=== PATIENT | male | born 1970 | race Caucasian/White ===

== ENCOUNTER 2017-03-18 08:30 | Emergency (ER) | payer BC ==
[~2017-03-18] VITALS: Ht 172.7 cm; Wt 87.3 kg
[~2017-03-18 08:30] MED LIST: ASPI-557 PO; ATOR40TA64 PO; CLOP75TA PO; LISI10TA7 PO; METO10TA3 PO; METO25TA6 PO; MULT-933 PO; NITR0.4T SL
[2017-03-18 08:34] VITALS: Ht 172.7 cm; Wt 87.3 kg
--- OUTSIDE RECORDS SUMMARY | 2017-03-18 08:36 | XMS REPORT | Continuity of Care Document ---
Author Author [facility] Organization [facility] Address Unknown Phone Unavailable Allergies Active Description Code Type Severity Reaction Onset Reported/Identified Relationship to Patient Clinical Status Yes No Known Allergies No Known Allergies Drug Allergy Unknown N/A 12/13/2015 Yes No Known Allergies NKMA N/A N/A 04/08/2016 Medications Problems Date Dx Coded Attending Type Code Diagnosis Diagnosed By 12/13/2015 Belkis Perez MD D72.829 ELEVATED WHITE BLOOD CELL COUNT, UNSPECIFIED 12/13/2015 Belkis Perez MD E78.5 HYPERLIPIDEMIA, UNSPECIFIED 12/13/2015 Belkis Perez MD F10.20 ALCOHOL DEPENDENCE, UNCOMPLICATED 12/13/2015 Belkis Perez MD F17.200 NICOTINE DEPENDENCE, UNSPECIFIED, UNCOMPLICATED 12/13/2015 Belkis Perez MD I21.11 STEMI INVOLVING RIGHT CORONARY ARTERY 12/13/2015 Belkis Perez MD I25.10 ATHSCL HEART DISEASE OF [place] CORONARY ARTERY W/O 12/13/2015 Belkis Perez MD I49.01 VENTRICULAR FIBRILLATION 12/13/2015 Belkis Perez MD R41.3 OTHER AMNESIA 12/13/2015 Belkis Perez MD Y90.9 PRESENCE OF ALCOHOL IN BLOOD, LEVEL NOT SPECIFIED Procedures Code Description Performed By Performed On 76197PY DILATION OF 1 COR ART WITH INTRALUM DEV, PERC APPR Belkis Perez MD 12/13/2015 [id number] PENTECOSTALISM OF CARDIAC RHYTHM, SINGLE Belkis Perez MD 12/13/2015 [id number] FLUOROSCOPY OF MULT COR ART USING L OSM CONTRAST Belkis Perez MD 12/13/2015 Results Test Result Range CBC - 12/14/15 00:50 MEAN CELL HGB 30.7 pg 27.0-33.0 MEAN CELL HGB CONCENTRATION 34.8 g/dL 32.0-37.0 MEAN CELL VOLUME 88.1 fl 80.0-100.0 RED BLOOD CELL 4.63 m/cumm 4.00-6.00 RED CELL DISTRIBUTION WIDTH 12.7 % 11.0- 15.6 WHITE BLOOD CELL 18.6 k/cumm 5.0-10.0 HEMOGLOBIN 14.2 gm/dL 14.0-18.0 HEMATOCRIT 40.8 % 40.0-54.0 PLATELET COUNT 207 k/cumm 150-400 PROTHROMBIN TIME WITH INR - 12/14/15 00:50 INTERNATIONAL NORMAL RATIO 1.1 0.9-1.1 PROTHROMBIN TIME 11.9 sec 9.3-12.2 PARTIAL THROMBOPLASTIN TIME - 12/14/15 00:50 PARTIAL THROMBOPLASTIN TIME 167 sec 23- 39 TROPONIN I - 12/14/15 00:50 TROPONIN I 10.68 ng/mL < 0.07 CBC - 12/14/15 05:49 MEAN CELL HGB 30.6 pg 27.0-33.0 MEAN CELL HGB CONCENTRATION 34.7 g/dL 32.0-37.0 MEAN CELL VOLUME 88.3 fl 80.0-100.0 RED BLOOD CELL 4.44 m/cumm 4.00-6.00 RED CELL DISTRIBUTION WIDTH 12.9 % 11.0- 15.6 WHITE BLOOD CELL 15.1 k/cumm 5.0-10.0 HEMOGLOBIN 13.6 gm/dL 14.0-18.0 HEMATOCRIT 39.2 % 40.0-54.0 PLATELET COUNT 214 k/cumm 150-400 HEMOGLOBIN A1C - 12/14/15 05:49 HEMOGLOBIN A1C 5.1 % < 5.7 METABOLIC PANEL, COMPREHN - 12/14/15 05:49 POTASSIUM 4.5 mmol/L 3.5-5.3 EST GFR (MDRD) > 60 mL/min > 59 ANION GAP 9 mmol/L 5-15 EST CrCl (CG) > 60 mL/min > 59 GLUCOSE 120 mg/dL 70-99 CALCIUM 7.2 mg/dL 8.5-10.1 BLOOD UREA NITROGEN 11 mg/dL 7-20 CREATININE 0.8 mg/dL 0.7-1.3 SODIUM 141 mmol/L 135-148 CHLORIDE 111 mmol/L 98-110 AST/SGOT 195 Units/L 10-37 ALT/SGPT 85 Units/L < 66 CARBON DIOXIDE 21 mmol/L 21-32 TOTAL PROTEIN 6.2 gm/dL 6.4-8.2 ALBUMIN 3.0 gm/dL 3.4-5.0 BILI TOTAL 0.3 mg/dL 0.0-1.0 ALKALINE PHOSPHATASE TOTAL 104 IU/L 45- 117 LIPID PANEL - 12/14/15 05:49 CHOLESTEROL/HDL RATIO 4.9 < 5.0 LDL CHOLESTEROL 115 mg/dL < 100 VLDL CHOLESTEROL 16 mg/dL < 30 TRIGLYCERIDES 81 mg/dL < 150 CHOLESTEROL 165 mg/dL < 200 HDL CHOLESTEROL 34 mg/dL > 39 THYROID STIM HORMONE (TSH) - 12/14/15 05:49 THYROID STIM HORMONE (TSH) 0.48 uIU/mL 0.34-4.82 TROPONIN I - 12/14/15 05:49 TROPONIN I 36.40 ng/mL < 0.07 PARTIAL THROMBOPLASTIN TIME - 12/14/15 07:45 PARTIAL THROMBOPLASTIN TIME 48 sec 23-39 TROPONIN I - 12/14/15 19:33 TROPONIN I 27.67 ng/mL < 0.07 CBC W/DIFF - 12/15/15 04:19 EOSINOPHIL # 0.2 k/cumm 0.1-0.5 EOSINOPHIL % 2 % 2-4 GRANULOCYTE # 7.3 k/cumm 2.0-9.0 GRANULOCYTE % 65 % 50-75 LYMPHOCYTE # 2.6 k/cumm 1.0-4.0 LYMPHOCYTE % 24 % 20-30 MEAN CELL HGB 30.0 pg 27.0-33.0 MEAN CELL HGB CONCENTRATION 33.9 g/dL 32.0-37.0 MEAN CELL VOLUME 88.5 fl 80.0-100.0 MONOCYTE # 1.1 k/cumm 0.1-1.0 MONOCYTE % 10 % 4-6 RED BLOOD CELL 4.94 m/cumm 4.00-6.00 RED CELL DISTRIBUTION WIDTH 13.0 % 11.0- 15.6 WHITE BLOOD CELL 11.2 k/cumm 5.0-10.0 HEMOGLOBIN 14.8 gm/dL 14.0-18.0 HEMATOCRIT 43.7 % 40.0-54.0 PLATELET COUNT 195 k/cumm 150-400 METABOLIC PANEL, BASIC - 12/15/15 04:19 POTASSIUM 4.0 mmol/L 3.5-5.3 EST GFR (MDRD) > 60 mL/min > 59 ANION GAP 7 mmol/L 5-15 EST CrCl (CG) > 60 mL/min > 59 GLUCOSE 92 mg/dL 70-99 CALCIUM 8.3 mg/dL 8.5-10.1 BLOOD UREA NITROGEN 8 mg/dL 7-20 CREATININE 0.9 mg/dL 0.7-1.3 SODIUM 142 mmol/L 135-148 CHLORIDE 109 mmol/L 98-110 CARBON DIOXIDE 26 mmol/L 21-32 Encounters ACCT No. Visit Date/Time Discharge Status Pt. Type Provider Facility Loc./Unit Complaint [id number] 12/13/2015 22:27:00 2015 11:00:00 DIS Inpatient Ana CAT, Belkis Epps [facility] W.3TN
--- OUTSIDE RECORDS SUMMARY | 2017-03-18 08:36 | XMS REPORT | Referral Summary ---
Author Author [facility] Organization [facility] Address Unknown Phone Unavailable Care Team Providers Care Lamp Stack Developer Name Role Phone Annita Munoz Primary Care Physician [phone] Encounter Date(s): 04/08/16 - 04/08/16 [facility] [address] [place] [id number] Discharge Diagnosis: Tick bite Discharge Diagnosis: Cellulitis Discharge Disposition: 01-Home or Self Care Attending Physician: Subhash Lepe PA-C Admitting Physician: Subhash Lepe PA-C Vital Signs Most recent to 1 oldest [Reference Range]: Temperature Tympanic 36.4 degC [36.6-38.1 degC] *LOW* (04/08/16 2:28 PM) Peripheral Pulse 85 bpm Rate [60-100 bpm] (04/08/16 2:28 PM) Blood Pressure 132/68 mmHg [90-140/60-90 mmHg] (04/08/16 2:28 PM) SpO2 97 % (04/08/16 2:28 PM) Problem List Condition Effective Dates Status Health Status Informant CAD (coronary artery Active disease)(Confirmed) Allergies, Adverse Reactions, Alerts No Known Allergies Medications aspirin 0 Refill(s) Start Date: 04/08/16 Status: Ordered doxycycline hyclate 100 mg oral capsule 100 mg 1 caps, Oral, BID, X 10 days, # 20 caps, 0 Refill(s), Pharmacy: [facility], 1 caps Oral BID,x10 days Start Date: 04/08/16 Stop Date: 04/18/16 Status: Ordered Metoprolol Tartrate BID, 0 Refill(s) Start Date: 04/08/16 Status: Ordered Plavix Oral, 0 Refill(s) Start Date: 04/08/16 Status: Ordered Results No data available for this section Immunizations No data available for this section Procedures No data available for this section Social History Social History Type Response Smoking Status Current every day smoker; Type: Cigarettes; Tobacco use per day: 1 Pack Assessment and Plan Extracted from: Title: tick bite Author: Subhash Lepe PA-C Date: 04/08/16 Assessment/Plan Cellulitis Take antibiotics as directed. Diagnosis and treatment discussed. Patient advised to follow up with PCP in 2-3 days. Patient stable upon discharge, alert and orientated with no apparent Tick bite No tick remnants noted. Orders: doxycycline, 100 mg 1 caps, Oral, BID, X 10 days, # 20 caps, 0 Refill( s), Pharmacy: [facility], 1 caps Oral BID,x10 days
--- OUTSIDE RECORDS SUMMARY | 2017-03-18 08:36 | XMS REPORT | Continuity of Care Document ---
Author Author [facility] Organization [facility] Address Unknown Phone Unavailable Support Name Relationship Address Phone ANGEL FLOYD MD Caregiver [address] [place] [address] Unavailable KALYYN ARMSTRONG MD Caregiver [address] [facility] [address] [place] [address] Unavailable BROOKEFebruary Next Of Kin [address] [place] [address] Insurance Providers Guarantor Victor Hugo Morrow Address [address] [place] [address] Email DENIED/NO TO PT PORTAL Payer [facility] Policy Number [id number] Subscriber's Name Victor Hugo Morrow Relationship 18 Self Group Number [id number] Advance Directives Directive Response Recorded Date/Time Advanced Directives Type None 04/09/16 10:00am Chief Complaint and Reason for Visit Chief Complaint Chest Pain Reason for Visit [id number] Problems Active Problems Medical Problem Onset Date Status Abdominal pain Unknown Acute Acute MO Unknown Acute Cardiac arrest Unknown Acute Non-STEMI (non-ST elevated myocardial infarction) Unknown Acute Past Problems Medical Problem Onset Date Chest pain radiating to arm Unknown Medications Current Home Medications Medication Dose Units Route Directions Days Qty Instructions Start Date Aspirin (Aspir 81) 81 Mg Tablet. 81 Mg Oral Daily 01/11/16 Atorvastatin Calcium 40 Mg Tablet 40 Mg Oral Bedtime 04/09/16 Clopidogrel Bisulfate (Plavix) 75 Mg Tablet 75 Mg Oral Daily Lisinopril 10 Mg Tablet 10 Mg Oral Daily 04/09/16 Metoclopramide Hcl 10 Mg Tablet 10 Mg Oral Twice A Day as needed for Reflux 04/09/16 Metoprolol Tartrate 25 Mg Tablet 25 Mg Oral Twice Daily With Meals 04/09/16 Multivitamin (Multi-Day Vitamins) 1 Each Tablet 1 Tab Oral Daily 04/09/16 Nitroglycerin (Nitrostat) 0.4 Mg Tablet 0.4 Mg Sublingual Every 5 Minutes X 3 as needed for Chest Pain 04/09/16 Past Home Medications Medication Directions Ordered Status No Daily Meds , 12/13/15 Discontinued Social History Social History Problem Response Recorded Date/Time Onset Date Status Hx Substance Use Y METHAMPHETAMINE USE HX 04/09/2016 10:00am Not Applicable Not Applicable Hx Alcohol Use Y 3-4 BEERS/DAY 04/09/2016 10:00am Not Applicable Not Applicable Tobacco Usage smoke 12/13/2015 9:45pm Not Applicable Not Applicable Query Response Start Date Stop Date Smoking Status Current some day smoker Hospital Discharge Instructions No hospital discharge instructions. Plan of Care Discharge Date 04/09/16 11:20am Disposition 01 DISCHARGED HOME, SELF-CARE Condition at Discharge Stable Instructions/Education Provided How to Quit Smoking Prescriptions See Medication Section Referrals KAYLYN ARMSTRONG MD Address: [address] [place] [address] [place] [address] Additional Instructions/Education Keep working on your smoking. Today's episode and labs/EKG/CXR aren't really pointing to this being a heart attack or pending heart attack. Call Dr Mars's office for an appointment in the next week or two (Dr Mars is back on April 19). If you have any more episodes like this call and get in sooner. Otherwise, resume normal activities. Care Plan and Goals Physician Care Plan Problem:chest pain radiating to left arm Goal: Follow up with primary care provider Instructions: Take medications and follow care plan as discussed/written Functional Status No functional status results. Allergies, Adverse Reactions, Alerts No known allergies. Immunizations Query Response on File Recorded Date/Time Influenza Vaccine Hx NO 04/09/16 10:00am Vital Signs Acute Vital Signs Vital Response Date/Time Temperature (Fahrenheit) 98.5 deg F (96.8 - 99.1) 04/09/2016 11:20am Temperature (Calculated Celsius) 36.34534 degrees C (36.0 - 37.3) 04/09/2016 11:20am Pulse Rate (adult) 60 bpm (60 - 100) 04/09/2016 11:20am Respiratory Rate 16 breaths/min (10 - 20) 04/09/2016 11:20am O2 Sat by Pulse Oximetry 95 % (90 - 100) 04/09/2016 11:20am Blood Pressure 135/74 mm Hg 04/09/2016 11:20am Height (Feet) 5 feet 04/09/2016 10:00am Height (Inches) 6.00 inches 04/09/2016 10:00am Weight (Kilograms) 83.400 kg 04/09/2016 10:00am Body Mass Index (BMI) 29.0 04/09/2016 10:00am Results Laboratory Results Test Name Result Units Flags Reference Collection Date/Time Result Date/ Time Comments White Blood Count 6.5 T/MM3 4.5-11.0 04/09/2016 10:04/09/2016 10: 30am Red Blood Count 5.21 M/MM3 4.50-5.90 04/09/2016 10:04/09/2016 10: 30am Hemoglobin 16.2 GM/DL 13.5-17.5 04/09/2016 10:04/09/2016 10:30am Hematocrit 47.5 % 41-53 04/09/2016 10:04/09/2016 10:30am Mean Corpuscular Volume 91.2 UM3 80-100 04/09/2016 10:04/09/2016 10:30am Mean Corpuscular Hemoglobin 31.1 UUG 26-34 04/09/2016 10:2015 10:30am Mean Corpuscular Hemoglobin Concent 34.1 GM/DL 31-37 04/09/2016 10:04/09/2016 10:30am RDW Standard Deviation 43.3 FL 36.9-50.2 04/09/2016 10:04/09/2016 10:30am Platelet Count 172 T/MM3 130-400 04/09/2016 10:04/09/2016 10:30am Mean Platelet Volume 11.4 UM3 9.4-12.4 04/09/2016 10:04/09/2016 10 :30am Neutrophils (%) (Auto) 67.0 % H 33-66 04/09/2016 10:04/09/2016 10: 30am Lymphocytes (%) (Auto) 21.4 % L 23-45 04/09/2016 10:04/09/2016 10: 30am Monocytes (%) (Auto) 9.3 % H 0-9.0 04/09/2016 10:04/09/2016 10: 30am Eosinophils (%) (Auto) 1.8 % 0-4 04/09/2016 10:04/09/2016 10:30am Basophils (%) (Auto) 0.3 % 0-2 04/09/2016 10:04/09/2016 10:30am Immature Granulocyte % (Auto) 0.2 % 0.0-0.5 04/09/2016 10:2015 10:30am Absolute Neutrophils (auto) 4.4 T/MM3 1.8-7.7 04/09/2016 10:2015 10:30am Absolute Lymphocytes (auto) 1.4 T/MM3 1-4.8 04/09/2016 10:2015 10:30am Absolute Monocytes (auto) 0.6 T/MM3 0-0.8 04/09/2016 10:2015 10:30am Absolute Eosinophils (auto) 0.1 T/MM3 0-0.5 04/09/2016 10:2015 10:30am Absolute Basophils (auto) 0.0 T/MM3 0-0.2 04/09/2016 10:2015 10:30am Absolute Immature Granulocyte (auto 0.01 T/MM3 0.00-0.03 04/09/2016 10: 04/09/2016 10:30am Prothromb Time International Ratio 1.06 0.81-1.09 04/09/2016 10:04/09/2016 10:34am THERAPUTIC RANGE=2.00-3.00 FOR ANTI-THROMBOSIS THERAPUTIC RANGE=2.50-3.50 FOR IMPLANTED VALVE Icterus Index < 2 0-7 04/09/2016 10:am 04/09/2016 10:39am Chemistry Specimen Hemolysis 106 H 0-25 04/09/2016 10:04/09/2016 10:39am 71-285: Specimen Exhibited Moderate Hemolysis - can falsely elevate K (Potassium), Troponin I, CA 19-9, PTH, CSF Glucose, Urine Protein, and can falsely decrease Phenytoin. Turbidity < 20 0-20 04/09/2016 10:04/09/2016 10:39am Sodium Level 140 MEQ/L 134-144 04/09/2016 10:04/09/2016 10:39am Potassium Level 4.2 MEQ/L 3.6-5 04/09/2016 10:04/09/2016 10:39am Chloride Level 106 MEQ/L 98-107 04/09/2016 10:04/09/2016 10:39am Carbon Dioxide Level 24 MEQ/L 22-30 04/09/2016 10:04/09/2016 10: 39am Anion Gap 10 MEQ/L 5-04/09/2016 10:04/09/2016 10:39am Blood Urea Nitrogen 9.0 MG/DL 9-04/09/2016 10:04/09/2016 10: 39am Creatinine 0.7 MG/DL L 0.8-1.5 04/09/2016 10:04/09/2016 10:39am BUN/Creatinine Ratio 13 RATIO 05-0904/09/2016 10:04/09/2016 10: 39am Glomerular Filtration Rate Calc 123 04/09/2016 10:04/09/2016 10:39am Glucose Level 127 MG/DL H 75-110 04/09/2016 10:04/09/2016 10:39am Calculated Osmolality 270 MOSM/KG 261-280 04/09/2016 10:2015 10:39am Calcium Level 9.5 MG/DL 8.4-10.2 04/09/2016 10:04/09/2016 10:39am Troponin I 0.015 ng/ml 0-0.12 04/09/2016 10:04/09/2016 10:51am Troponin values with a difference of 55% increase from orginal troponin value represent a true biological DELTA value. (%increase Calc=Orginal Troponin value, divided by subsequent Troponin value, multiplied by 100) TY-Svg-M-Type Natriuretic Peptide 67 PG/ML 0-175 04/09/2016 10: 10:51am Rule in cut points: <50 years old=450; 50-75 years old=900; >75 years old=1800; When utilizing ProBNP rule-in cut points, adjustment for impaired renal function is typically not required. Name: BROOKEVICTOR HUGO Viola Unit #: [id number] : 1970 Sex: M Admit Date: Loc / Svc: ED Discharge Date: DIAGNOSTIC IMAGING REPORT Report #: [id number] [facility] [place] Indication: ITS.REASON: chest pain with shortness of breath starting this morning, pain radiating down the left arm PROCEDURE: CHEST 1 VIEW: Encounter: Initial Comparison: January 11, 2016 FINDINGS: The lungs are clear. There is no abnormal airspace opacity, pleural effusion or pneumothorax identified. The heart size, pulmonary vasculature and mediastinum are within normal limits. No significant skeletal abnormality is seen. IMPRESSION: No acute cardiopulmonary abnormality. . Procedures Procedure Status Date Provider(s) CHEST X-RAY 1 VIEW FRONTAL Completed 04/09/16 METABOLIC PANEL TOTAL CA Completed 04/09/16 ASSAY OF NATRIURETIC PEPTIDE Completed 04/09/16 ASSAY OF TROPONIN QUANT Completed 04/09/16 COMPLETE CBC W/AUTO DIFF WBC Completed 04/09/16 PROTHROMBIN TIME Completed 04/09/16 ELECTROCARDIOGRAM TRACING Completed 04/09/16 EMERGENCY DEPT VISIT Completed 04/09/16 Encounters Encounter Location Arrival/Admit Date Discharge/Depart Date Attending Provider Departed Emergency Room [facility] 04/09/16 9:58am 04/09/16 11: 20am ANGEL FLOYD MD Discharged Recurring [facility] 01/19/16 2:00pm 04/20/16 11:59pm LEANDER JASON MD Recent Diagnosis
--- OUTSIDE RECORDS SUMMARY | 2017-03-18 08:36 | XMS REPORT | Continuity of Care Document ---
Author Author [facility] Organization [facility] Address Unknown Phone Unavailable Support Name Relationship Address Phone ANGEL FLOYD MD Caregiver [address] [place] [address] Unavailable KAYLYN ARMSTRONG MD Caregiver [address] [place] [address] Unavailable BROOKEFebruary Next Of Kin [address] [place] [address] Insurance Providers Guarantor Victor Hugo Morrow Address [address] [place] [address] Email DENIED/NO TO PT PORTAL Payer [facility] Policy Number [id number] Subscriber's Name Victor Hugo Morrow Relationship 18 Self Group Number [id number] Advance Directives Directive Response Recorded Date/Time Advanced Directives Type None 04/09/16 10:00am Chief Complaint and Reason for Visit Chief Complaint Chest Pain Reason for Visit [id number] Problems Active Problems Medical Problem Onset Date Status Abdominal pain Unknown Acute Acute [place] Unknown Acute Cardiac arrest Unknown Acute Non-STEMI [...] Medication Section Referrals KAYLYN ARMSTRONG MD Address: [address] [place] [address] [place] [address] Additional Instructions/Education Keep working on [...] - 99.1) 04/09/2016 11:20am Temperature (Calculated Celsius) 36.08280 degrees C (36.0 - 37.3) 04/09/2016 11:20am [...] Reference Collection Date/Time Result Date/ Time Comments Total Bilirubin 0.20 MG/DL 0.20-1.30 01/11/2016 10:00pm 01/11/2016 10: 18pm Alkaline Phosphatase 112 U/L 38-126 01/11/2016 10:00pm 01/11/2016 10: 18pm Total Protein 7.2 G/DL 6.3-8.2 01/11/2016 10:00pm 01/11/2016 10:18pm Albumin 4.1 G/DL 3.5-5.0 01/11/2016 10:00pm 01/11/2016 10:18pm Globulin 3.1 G/DL 2.4-3.6 01/11/2016 10:00pm 01/11/2016 10:18pm Albumin/Globulin Ratio 1.3 RATIO 1.1-2.2 01/11/2016 10:00pm 01/11/2016 10:18pm Aspartate Amino Transf (AST/SGOT) 37 U/L 17-59 01/11/2016 10:00pm 01/11 10:18pm Alanine Aminotransferase (ALT/SGPT) 86 U/L H 21-72 01/11/2016 10:00pm 10:18pm Lipase 81 U/L 23-300 01/11/2016 10:00pm 01/11/2016 10:36pm Alcohol, Quantitative <10 MG/DL <10 01/11/2016 10:00pm 01/11/2016 10: 18pm Urine Collection Type [place]-MIDSTREAM 01/11/2016 11:07pm 01/11 11:16pm Urine Color YELLOW YELLOW 01/11/2016 11:07pm 01/11/2016 11:16pm Urine Turbidity CLEAR CLEAR 01/11/2016 11:07pm 01/11/2016 11:16pm Urine Specific [place] 1.010 L 1.015-1.025 01/11/2016 11:07pm 2015 11:16pm Urine pH 5.5 5.0-8.0 01/11/2016 11:07pm 01/11/2016 11:16pm Urine Leukocyte Esterase NEGATIVE NEGATIVE 01/11/2016 11:07pm 2015 11:16pm Urine Nitrite NEGATIVE NEGATIVE 01/11/2016 11:07pm 01/11/2016 11: 16pm Urine Protein NEGATIVE NEGATIVE 01/11/2016 11:07pm 01/11/2016 11: 16pm Urine Glucose (UA) NEGATIVE NEGATIVE 01/11/2016 11:07pm 01/11/2016 11 :16pm Urine Ketones NEGATIVE NEGATIVE 01/11/2016 11:07pm 01/11/2016 11: 16pm Urine Urobilinogen 0.2 EU/DL NORMAL 01/11/2016 11:07pm 01/11/2016 11: 16pm Urine Bilirubin NEGATIVE NEGATIVE 01/11/2016 11:07pm 01/11/2016 11: 16pm Urine Blood NEGATIVE NEGATIVE 01/11/2016 11:07pm 01/11/2016 11:16pm Urinalysis Comment MICROSCOPIC NOT IND. 01/11/2016 11:07pm 2015 11:16pm White Blood Count 6.5 T/MM3 4.5-11.0 04/09/2016 10:2504/09/2016 10: 30am Red Blood Count 5.21 M/MM3 4.50-5.90 04/09/2016 10:04/09/2016 10: 30am Hemoglobin 16.2 GM/DL 13.5-17.5 04/09/2016 10:04/09/2016 10:30am Hematocrit 47.5 % 41-53 04/09/2016 10:04/09/2016 10:30am Mean Corpuscular Volume 91.2 UM3 80-100 04/09/2016 10:2504/09/2016 10:30am Mean Corpuscular Hemoglobin 31.1 UUG 26-34 04/09/2016 10:252015 10:30am Mean Corpuscular Hemoglobin Concent 34.1 GM/DL 31-37 04/09/2016 10:25am 04/09/2016 10:30am RDW Standard Deviation 43.3 FL 36.9-50.2 04/09/2016 10:2504/09/2016 10:30am Platelet Count 172 T/MM3 130-400 04/09/2016 [...] VALVE Icterus Index < 2 0-7 04/09/2016 10:04/09/2016 10:39am Chemistry Specimen Hemolysis 106 H 0-04/09/2016 10:04/09/2016 10:39am [id number]: Specimen Exhibited Moderate Hemolysis - can falsely elevate K (Potassium), Troponin I, CA 19-9, PTH, CSF Glucose, Urine Protein, and can falsely decrease Phenytoin. Turbidity < 20 0-20 04/09/2016 10:04/09/2016 10:39am Sodium Level 140 MEQ/L 134-144 04/09/2016 10:04/09/2016 10:39am Potassium Level 4.2 MEQ/L 3.6-5 04/09/2016 10:04/09/2016 10:39am Chloride Level 106 MEQ/L 98-107 04/09/2016 10:04/09/2016 10:39am Carbon Dioxide Level 24 MEQ/L 22-04/09/2016 10:04/09/2016 10: 39am Anion Gap 10 MEQ/L 5-15 04/09/2016 10:04/09/2016 10:39am Blood Urea Nitrogen 9.0 MG/DL 9-04/09/2016 10:04/09/2016 10: 39am Creatinine 0.7 MG/DL L 0.8-1.5 04/09/2016 10:04/09/2016 10:39am BUN/Creatinine Ratio 13 RATIO 6-04/09/2016 10:04/09/2016 10: 39am Glomerular Filtration Rate Calc 123 04/09/2016 10:04/09/2016 10:39am Glucose Level 127 MG/DL H 75-110 04/09/2016 10:04/09/2016 10:39am Calculated Osmolality 270 MOSM/KG 261-280 04/09/2016 10:2015 10:39am Calcium Level 9.5 MG/DL 8.4-10.2 04/09/2016 10:04/09/2016 10:39am Troponin I 0.015 ng/ml 0-0.12 04/09/2016 10:25am 04/09/2016 10:51am Troponin values with a difference of 55% increase from orginal troponin value represent a true biological DELTA value. (%increase Calc=Orginal Troponin value, divided by subsequent Troponin value, multiplied by 100) VL-Lwi-J-Type Natriuretic Peptide 67 PG/ML 0-175 04/09/2016 10:25am 10:51am Rule in cut points: <50 years old=450; 50-75 years old=900; >75 years old=1800; When utilizing ProBNP rule-in cut points, adjustment for impaired renal function is typically not required. Name: VICTOR HUGO MORROW Unit #: [id number] : 1970 Sex: M Admit Date: Loc / Svc: ED Discharge Date: DIAGNOSTIC IMAGING REPORT Report #: [id number] [facility] [place] [facility] Indication: ITS.REASON: chest pain with shortness of [...] Procedures Procedure Status Date Provider(s) CHEST X-RAY 2VW FRONTAL&LATL Completed 01/11/16 CT ABD & PELV W/CONTRAST Completed 01/11/16 COMPREHEN METABOLIC PANEL Completed 01/11/16 DRUG SCREEN QUANTALCOHOLS Completed 01/11/16 URINALYSIS AUTO W/O SCOPE Completed 01/11/16 ASSAY OF LIPASE Completed 01/11/16 ASSAY OF TROPONIN QUANT Completed 01/11/16 COMPLETE CBC W/AUTO DIFF WBC Completed 01/11/16 ELECTROCARDIOGRAM TRACING Completed 01/11/16 HYDRATE IV INFUSION ADD-ON Completed 01/11/16 THER/PROPH/DIAG INJ IV PUSH Completed 01/11/16 TX/PRO/DX INJ NEW DRUG ADDON Completed 01/11/16 EMERGENCY DEPT VISIT Completed 01/11/16317283"INJECTION, HYDROMORPHONE, UP TO 4 MG" Completed 01/11/16"INJECTION, KETOROLAC TROMETHAMINE, PER 15 MG" Completed 01/11/16"INFUSION, NORMAL SALINE SOLUTION , 1000 CC" Completed 01/11/16"INFUSION, NORMAL SALINE SOLUTION , 250 CC" Completed 01/11/16"LOW OSMOLAR CONTRAST MATERIAL, 300-399 MG/ML IODINE C Completed Encounters Encounter Location Arrival/Admit Date Discharge/Depart Date Attending Provider Departed Emergency Room [facility] 04/09/16 9:58am 04/09/16 11: 20am ANGEL FLOYD MD Registered Recurring [facility] 01/19/16 2:00pm LEANDER JASON MD Departed Emergency Room [facility] 01/11/16 9:25pm 01/11/16 11: 41pm KAUSHIK SILVA MD Recent Diagnosis
[2017-03-18] MEDS ORDERED: NORMAL SALINE 1,000 ML IV ONE (08:44)
[2017-03-18] MEDS ORDERED: ASPIRIN 81 MG CHEWABLE TABLET PO ONE (08:45)
[2017-03-18] MEDS ORDERED: NITROGLYCERIN 0.4 MG SUBLINGUAL TABLET SL PRN (08:45)
--- OUTSIDE RECORDS SUMMARY | 2017-03-18 08:57 | XMS REPORT | Continuity of Care Document ---
Author Author [facility] Organization [facility] Address Unknown Phone Unavailable Allergies Active Description [...] Perez MD I25.10 ATHSCL HEART DISEASE OF [place] CORONARY ARTERY W/O 12/13/2015 Belkis Perez MD I49.01 VENTRICULAR FIBRILLATION 12/13/2015 Belkis Perez MD R41.3 OTHER AMNESIA 12/13/2015 Belkis Perez MD Y90.9 PRESENCE OF ALCOHOL IN BLOOD, LEVEL NOT SPECIFIED Procedures Code Description Performed By [place]formed [place] [id number] DILATION OF 1 COR ART WITH INTRALUM DEV, PERC APPR Belkis Perez MD 12/13/2015 [id number] TAOISM OF CARDIAC RHYTHM, SINGLE Belkis Perez MD 12/13/2015 [id number] FLUOROSCOPY OF MULT COR ART USING L [...] Status Pt. Type Provider Facility Loc./Unit Complaint [id number] 12/13/2015 22:27:00 2015 11:00:00 DIS Inpatient Ana CAT, Belkis Epps [facility] W.3TN
--- NOTE | 2017-03-18 09:05 | NUR ---
TO [facility] PER CART
--- NOTE | 2017-03-18 09:07 | NUR ---
RETURNED FROM [facility]
[2017-03-18 09:09] LABS: BASOPHILS % (AUTO) 0.4 % (0-2); EOSINOPHILS # (AUTO) 0.2 T/MM3 (0-0.5); EOSINOPHILS % (AUTO) 2.1 % (0-4); HCT - HEMATOCRIT 47.7 % (41-53); HGB - HEMOGLOBIN 16.3 GM/DL (13.5-17.5); IMMATURE GRANULOCYTE # (AUTO) 0.02 T/MM3 (0.00-0.03); IMMATURE GRANULOCYTE % (AUTO) 0.2 % (0.0-0.5); LYMPHOCYTES # (AUTO) 2.4 T/MM3 (1-4.8); LYMPHOCYTES % (AUTO) 29.8 % (23-45); MEAN CORPUSCULAR HGB 30.6 UUG (26-34); MEAN CORPUSCULAR HGB CONC(MCHC 34.2 GM/DL (31-37); MEAN CORPUSCULAR VOLUME 89.7 UM3 (80-100); MEAN PLATELET VOLUME 10.9 UM3 (9.4-12.4); MONOCYTES # (AUTO) 0.7 T/MM3 (0-0.8); MONOCYTES % (AUTO) 8.2 % (0-9.0); NEUTROPHILS #(AUTO)-ABSOLUTE 4.8 T/MM3 (1.8-7.7); NEUTROPHILS % (AUTO) 59.3 % (33-66); RED BLOOD COUNT 5.32 M/MM3 (4.50-5.90); WBC - WHITE BLOOD COUNT 8.1 T/MM3 (4.5-11.0)
[2017-03-18 09:12] LABS: ALBUMIN 3.8 G/DL (3.5-5.0); ALBUMIN/GLOBULIN RATIO 1.3 RATIO (1.1-2.2); ALKALINE PHOSPHATASE 103 U/L (38-126); ALT (SGPT) 41 U/L (21-72); ANION GAP 9 MEQ/L (5-15); AST (SGOT) 26 U/L (17-59); BUN/CREATININE RATIO 16 RATIO (6-26); CHLORIDE 108 MEQ/L (98-107); CO2 - CARBON DIOXIDE 26 MEQ/L (22-30); CREATININE 0.9 MG/DL (0.8-1.5); GLOMERULAR FILTRATION RATE 92; GLUCOSE 108 MG/DL (75-110); INR 1.06 (0.76-1.04); POTASSIUM 3.9 MEQ/L (3.6-5); PROTHROMBIN TIME 11.5 SEC (9.31-12.49); SODIUM 143 MEQ/L (134-144); TOTAL PROTEIN 6.7 G/DL (6.3-8.2)
[2017-03-18 09:24] LABS: PROBNP 44 PG/ML (0-175)
--- NOTE | 2017-03-18 09:26 | DI ---
INDICATION: ITS.REASON: chest pain chest pressure and lightheadedness PROCEDURE: CHEST 2-VIEWS UPRIGHT (PA \T\ LAT) Encounter: Initial COMPARISON: April 09, 2016 FINDINGS: The lungs are clear without evidence of focal abnormal airspace opacity. There is no pleural effusion or pneumothorax. The heart size, mediastinal contours and pulmonary vascularity are within normal limits. There is no significant skeletal abnormality. IMPRESSION: No acute cardiopulmonary disease. .
--- NOTE | 2017-03-18 09:59 | NUR ---
STATUS PLAYING ON HIS PHONE. NO COMPLAINTS. VS STABLE. MONITOR SR
--- NOTE | 2017-03-18 11:30 | NUR ---
ASSESSMENT PT SITTING UP IN CHAIR AFTER VOIDING. PT WANTS TO GO BACK TO WORK. NO PAIN. VS STABLE. MONITOR CONTINUES SR
--- NOTE | 2017-03-18 13:34 | ERPDOC ---
Departure Disposition Decision Date: March 18, 2017 Disposition Decision Time: 14:21 Disposition: 01 DISCHARGED HOME, SELF-CARE Impression Impression Impression: Primary Impression: Angina effort Severity: Moderate Condition: Improved Seen By: Physician only Referrals: KAYLYN ARMSTRONG MD (Family) Patient Instructions: Chest Pain (ED) Problems/Meds/Labs Reviewed?: Yes Medications reviewed and manag: Yes Additional Instructions: Call Dr. Mars's office to set up follow-up appointment and angiogram. This is important because you're episode of chest tightness/chest pain today may be an indicator of another heart attack to come shortly. Follow up care ordered?: Yes Mental Status: Alert, Oriented HPI - Chest Pain General Chief Complaint: Chest Pain Stated Complaint: CP, DIZZY Time Seen by Provider: 08:43 HPI - Chest Pain Initial Comments 46-year-old gentleman with chest pain onset 30 minutes prior to arrival in the ED. Patient has history of WI with multiple stent placement approximately one half years ago. He has been able to go back to work without any chest pain, states he occasionally gets tightness in his chest but is rare. Today the tightness returned and was uncomfortable. It made him nervous and when he mentioned it to a coworker, they insisted he come to the ER to be evaluated. He would prefer to be allowed to leave as soon as possible, is concerned about missing hours at work. He does still smoke. He is taking cholesterol medication as well as Plavix. He had mild diaphoresis with the onset of the tightness today , no nausea vomiting, no extension of pain or tightness into neck arm or back. Patient describes that the pressure/tightness has resolved by the time he arrived to the hospital today. Aspirin Treatment Today: 81 mg x 4 Allergies: Coded Allergies: No Known Allergies (Unverified , 03/18/17) Past History Past Medical History Cardiac: CAD, WI Date Last Echocardiogram: April 06, 2016 Ejection Fraction (%): 65 Surgical History Cardiac: cardiac cath, cardiac stent Family History Family PMH: FOUND: [place] Social History Smoking Status: Current every day smoker # of Packs/Tins per Day: 0.5 Substance Use Type: does not use Alcohol Intake: none Sexuality: female partner Record Review Pertinent history updated: Yes Review of Systems Cardiovascular Cardiac: see HPI Rhythm/Rate: see HPI All other Systems All Other Systems: Reviewed and Negative Physical Exam General General Nourishment: well nourished, well developed, appears stated age, no acute distress Vitals and Pain First Documented Vital Signs Date Time Temp Pulse Resp B/P Pulse Ox O2 Delivery O2 Flow Rate FiO2 03/18/17 08:32 98.3 75 19 128/73 96 Room Air Weight: Kilograms: 87.300 Height (feet): 5 Height (inches): 8.00 Triage Pain Scale: Normal Exams: Head: Normocephalic w/o trauma Neck: Full range of motion, without adenopathy, JVD, bruits or thyromegaly Chest/Resp: Clear all [place], with good airflow, and symmetry bilaterally CV: Regular rate and rhythm, without murmur or gallop, Pulses 2+ all extremities, capillary refill, <2 seconds all ext., no pedal edema noted Abdomen: Bowel sounds positive, soft, non-tender, non-distended, no hepatosplenomegaly, masses or bruits noted Neurologic: Patient is alert, and oriented, cranial nerves, motor/sensory/ cerebellar, exams w/o gross deficits, to observation Psychiatric: Patient exhibits, appropriate attention, emotion and affect Differential Diagnoses Considering: Acute WI, Anxiety/Panic, Angina, Pericarditis, Pleurisy, Pneumothorax, Pneumonia, Pulmonary Edema, Pulmonary Embolus, Muscle Spasm Progress Results/Orders Orders Procedure Category Date Status Time Cbc W/Auto LAB 03/18/17 Complete Diff-Reflex Manual 08:44 Cmp - Comprehensive LAB 03/18/17 Complete Metabolic 08:44 Probnp LAB 03/18/17 Complete 08:44 Troponin I W LAB 03/18/17 Complete Hemolysis Index 08:44 INR LAB 03/18/17 Complete 08:44 D-Dimer LAB 03/18/17 Complete 08:44 EKG EKG 03/18/17 Taken 08:44 Chest, Pa & Lateral RAD 03/18/17 Resulted 08:44 Iv Lock (Ed Only) EDM 03/18/17 Transmitted 08:44 Normal Saline (Normal PHA 03/18/17 Complete Saline Iv) 08:44 Aspirin (Asa) PHA 03/18/17 Complete 08:45 Nitroglycerin PHA 03/18/17 In Process (Nitrostat) 08:45 Troponin I W LAB 03/18/17 Complete Hemolysis Index EKG EKG 03/18/17 Logged Lab Results Laboratory Tests Test 03/18/17 08:51 03/18/17 13:40 White Blood Count 8.1T/MM3 Red Blood Count 5.32M/MM3 Hemoglobin 16.3GM/DL Hematocrit 47.7% Mean Corpuscular Volume 89.7UM3 Mean Corpuscular Hemoglobin 30.6UUG Mean Corpuscular Hemoglobin Concent 34.2GM/DL RDW Standard Deviation 42.1FL Platelet Count 196T/MM3 Mean Platelet Volume 10.9UM3 Immature Granulocyte % (Auto) 0.2% Neutrophils (%) (Auto) 59.3% Lymphocytes (%) (Auto) 29.8% Monocytes (%) (Auto) 8.2% Eosinophils (%) (Auto) 2.1% Basophils (%) (Auto) 0.4% Absolute Immature Granulocyte (auto 0.02T/MM3 Absolute Neutrophils (auto) 4.8T/MM3 Absolute Lymphocytes (auto) 2.4T/MM3 Absolute Monocytes (auto) 0.7T/MM3 Absolute Eosinophils (auto) 0.2T/MM3 Absolute Basophils (auto) 0.0T/MM3 Prothromb Time International Ratio 1.06 D-Dimer < 150NG/ML Turbidity < 20 Sodium Level 143MEQ/L Potassium Level 3.9MEQ/L Chloride Level 108MEQ/L Carbon Dioxide Level 26MEQ/L Anion Gap 9MEQ/L Blood Urea Nitrogen 14.0MG/DL Creatinine 0.9MG/DL Glomerular Filtration Rate Calc 92 BUN/Creatinine Ratio 16RATIO Glucose Level 108MG/DL Calculated Osmolality 277MOSM/KG Calcium Level 9.0MG/DL Total Bilirubin 0.60MG/DL Icterus Index < 2 Aspartate Amino Transf (AST/SGOT) 26U/L Alanine Aminotransferase (ALT/SGPT) 41U/L Alkaline Phosphatase 103U/L Troponin I < 0.012ng/ml < 0.012ng/ml QP-Uom-F-Type Natriuretic Peptide 44PG/ML Total Protein 6.7G/DL Albumin 3.8G/DL Globulin 2.9G/DL Albumin/Globulin Ratio 1.3RATIO Chemistry Specimen Hemolysis < 15 < 15 Medications Current ED Medications Sodium Chloride (Normal Saline IV) 1,000 ml @ 1,000 mls/hr Q1H ONCE IV Last administered on 03/18/17t 08:57; Start 03/18/17 at 08:44; Stop 03/18/17 at 09:43; Status DC Aspirin (ASA) 324 mg O ONCE PO Last administered on 03/18/17t 08:57; Start 03/18 at 08:45; Stop 03/18/17 at 08:46; Status DC Nitroglycerin (Nitrostat) 0.4 mg Q5MIN PRN SL CHEST PAIN; Start 03/18/17 at 08: 45 Progress Progress Initial troponin and EKG are negative. Labs appropriate. Patient did agree to stay for a 4 hour redraw on his troponin. 4 hour redraw was also negative. I certainly am still concerned that this is angina and related to cardiac arterial flow. Strongly recommended he follow up with Dr. Mars this next week and schedule a stress test or angiogram. He is to return to the ED immediately if chest pain recurs. Is not thrilled about this, we did discuss the reasons behind it and that while this time it may have been angina without any damage, the next time may have damaged [address]ELY [address] MD March 18, 2017 13:34
[2017-03-18 14:00] VITALS: TEMP 98.3
--- NOTE | 2017-03-18 14:05 | NUR ---
FAMILY AT BEDSIDE
--- NOTE | 2017-03-18 14:23 | NUR ---
IVL IVL DC'D WITH CATH INTACT
[2017-03-18 14:25] VITALS: BP 124/77; PULSE 61; RESP 16; O2SAT 96
--- NOTE | 2017-03-18 14:25 | NUR ---
DISMISSAL DISMISSAL INSTRUCTIONS TO PT WITHOUT FURTHER QUESTIONS. PT LEFT DEPARTMENT DISCOMFORT FREE WITH
== END 2017-03-18 14:25 | disposition home or self-care (01) ==
LOC: ED 08:30
DX: I20.8 Other forms of angina pectoris (principal); F17.200 Nicotine dependence, unspecified, uncomplicated; I25.2 Old myocardial infarction
CPT/HCPCS: 36415; 71020; 80053; 83880; 84484; 85025; 85379; 85610; 93005; 96360; 99284; J7030

== ENCOUNTER 2017-03-30 10:48 | Outpatient (CLI) | payer BC ==
[2017-03-30] VITALS (14 sets, daily range): BP systolic 105–131; BP diastolic 57–87; PULSE 58–75; RESP 13–27; TEMP 97.5–98; O2SAT 96–99; Ht 170.2 cm; Wt 85.6 kg
[~2017-03-30] VITALS: Ht 170.2 cm; Wt 85.6 kg
[~2017-03-30 10:48] MED LIST changes: -METO10TA3 PO
--- NOTE | 2017-03-30 10:53 | NUR ---
ADMISSION PATIENT ADMITTED TO ROOM 124 AT THIS TIME. PT AMBULATORY AND APPEARS TO BE IN NO ACUTE DISTRESS. FAMILY AT BEDSIDE. PT GIVEN INSTRUCTIONS ON GETTING DRESSED IN GOWN/SOCKS. WILL CONTINUE TO MONITOR.
[2017-03-30 11:18] LABS: BASOPHILS # (AUTO) 0.1 T/MM3 (0-0.2); BASOPHILS % (AUTO) 0.6 % (0-2); EOSINOPHILS # (AUTO) 0.2 T/MM3 (0-0.5); EOSINOPHILS % (AUTO) 2.2 % (0-4); HCT - HEMATOCRIT 50.7 % (41-53); HGB - HEMOGLOBIN 17.3 GM/DL (13.5-17.5); IMMATURE GRANULOCYTE # (AUTO) 0.02 T/MM3 (0.00-0.03); IMMATURE GRANULOCYTE % (AUTO) 0.3 % (0.0-0.5); LYMPHOCYTES # (AUTO) 2.3 T/MM3 (1-4.8); LYMPHOCYTES % (AUTO) 28.8 % (23-45); MEAN CORPUSCULAR HGB 30.9 UUG (26-34); MEAN CORPUSCULAR HGB CONC(MCHC 34.1 GM/DL (31-37); MEAN CORPUSCULAR VOLUME 90.5 UM3 (80-100); MEAN PLATELET VOLUME 10.9 UM3 (9.4-12.4); MONOCYTES # (AUTO) 0.7 T/MM3 (0-0.8); MONOCYTES % (AUTO) 8.7 % (0-9.0); NEUTROPHILS #(AUTO)-ABSOLUTE 4.7 T/MM3 (1.8-7.7); NEUTROPHILS % (AUTO) 59.4 % (33-66); WBC - WHITE BLOOD COUNT 7.9 T/MM3 (4.5-11.0)
[2017-03-30 11:24] LABS: ANION GAP 12 MEQ/L (5-15); BUN/CREATININE RATIO 13 RATIO (6-26); CALCIUM 9.5 MG/DL (8.4-10.2); CHLORIDE 109 MEQ/L (98-107); CO2 - CARBON DIOXIDE 24 MEQ/L (22-30); CREATININE 0.9 MG/DL (0.8-1.5); GLOMERULAR FILTRATION RATE 92; GLUCOSE 96 MG/DL (75-110); POTASSIUM 4.3 MEQ/L (3.6-5); SODIUM 145 MEQ/L (134-144)
[2017-03-30] MEDS: NORMAL SALINE 1,000 ML IV SCH ×2 (11:35→23:10)
--- NOTE | 2017-03-30 12:20 | NUR ---
TO [facility] PT TRANSPORTED TO [facility] AT THIS TIME VIA CART. SIGNIFICANT OTHER SLY PRESENT UPON TRANSFER. VITAL SIGNS STABLE UPON TRANSFER. INFORMED CONSENT OBTAINED AND PT VOIDED PRIOR. WILL CONTINUE TO MONITOR.
[2017-03-30] MEDS ORDERED: FENTANYL 100mcg/2ml INJECTION ONE (12:24)
[2017-03-30] MEDS ORDERED: NITROGLYCERIN 50mg/10ml INJECTION IV ONE (12:25)
[2017-03-30] MEDS ORDERED: MIDAZOLAM 2mg/2ml INJECTION ONE (12:25)
[2017-03-30] MEDS ORDERED: VERAPAMIL 5mg/2ml INJECTION IV ONE (12:25)
[2017-03-30] MEDS ORDERED: LIDOCAINE 1% (10mg/ml) 30ml SDV ONE (12:26)
[2017-03-30] MEDS ORDERED: HEPARIN 1,000units in NS 500ml BAG IV ONE (12:26)
[2017-03-30] MEDS ORDERED: CLOPIDOGREL 75 MG TABLET ONE (12:53)
[2017-03-30] MEDS ORDERED: MILK OF MAGNESIA 30 ML SUSP PO PRN (13:00)
[2017-03-30] MEDS ORDERED: BISACODYL 10 MG SUPPOSITORY RECTALLY PRN (13:00)
[2017-03-30] MEDS ORDERED: BISACODYL 5 MG E.C. TABLET PO PRN (13:00)
[2017-03-30] MEDS ORDERED: PROMETHAZINE 25 MG INJECTION IV PRN (13:00)
[2017-03-30] MEDS ORDERED: MORPHINE SULFATE 4 MG SYRINGE IV PRN ×2 (13:00)
[2017-03-30] MEDS ORDERED: HYDROCODONE/APAP 5 mg/325 mg TABLET PO PRN (13:00)
[2017-03-30] MEDS ORDERED: ONDANSETRON 4mg/2ml INJECTION IV PRN (13:00)
[2017-03-30] MEDS ORDERED: METOCLOPRAMIDE 10mg/2ml INJECTION IV PRN (13:00)
[2017-03-30] MEDS ORDERED: NITROGLYCERIN 0.4 MG SUBLINGUAL TABLET SL PRN (13:00)
[2017-03-30] MEDS ORDERED: ACETAMINOPHEN 325 MG TABLET PO PRN (13:00)
[2017-03-30] MEDS ORDERED: ATROPINE 1 MG/ML VIAL IV PRN (13:00)
[2017-03-30] MEDS ORDERED: LORAZEPAM 2 MG/ML INJECTION IV PRN (13:00)
[2017-03-30] MEDS ORDERED: MAG-AL + SIM LIQUID 30 ML UDC PO PRN (13:00)
[2017-03-30] MEDS ORDERED: LORAZEPAM 0.5 MG TABLET PO PRN (13:00)
--- NOTE | 2017-03-30 13:38 | NUR ---
ADMIT PT ADMITTED TO BED 1 CCU VIA BED FROM BEHAVIORAL SCIENCE CHAIR. PT IS A&OX3, UP WITH ONE ASSIST, MODERATE FALL. PT IS ABLE TO TAKE IN CLEAR LIQUIDS AND REPORTS PAIN IN FORM OF HEADACHE. RADIAL BAND TO RIGHT WRIST IN PLACE, NO HEMATOMA OR BLEEDING AT THIS TIME. AND PT ORIENTED TO BED AND ROOM. ALARMS IN USE AND CALL LIGHT WITH IN REACH.
--- NOTE | 2017-03-30 15:08 | NUR ---
CM CM IN TO VISIT PT. CM EXPLAINED ROLE AND PROVIDED CONTACT INFORMATION. PT DENIES HOME NEEDS AND IS AWARE TO CALL CM SHOULD NEEDS ARISE.
--- NOTE | 2017-03-30 16:39 | CVPROF ---
DATE OF PROCEDURE March 30, 2017 INDICATION The patient is a 46-year-old gentleman with history of coronary artery disease and percutaneous intervention in the past who has stopped taking his Plavix and has been having increasing angina and was referred for further evaluation and possible intervention by cardiac catheterization. INFORMED CONSENT Informed consent was obtained after explaining the procedure and the potential risks to the patient who agreed to proceed with the procedure. PROCEDURE 1. Left heart catheterization. 2. Coronary angiography. 3. Left ventriculography. 4. Primary stent of RCA using a 3.0 x 38 drug-eluting Resolute Integrity stent for in-stent restenosis. TECHNIQUE He was prepped and draped in the usual sterile techniques. Conscious sedation was performed using Versed and fentanyl. 1% lidocaine was used for local anesthesia. Using modified Seldinger technique, arterial access was obtained into the right radial artery with placement of a 6-[place]ith[place]ian arterial sheath. 3000 units of heparin, 300 mcg of nitroglycerin, and 2.5 mg of verapamil were given through the arterial sheath. LEFT VENTRICULOGRAPHY Left ventriculography in single-plane PAULSON shallow projection showed normal LV systolic function with ejection fraction of about 65% with no mitral regurgitation or gradient across the aortic valve. LVEDP was about 8. CORONARY ANGIOGRAPHY Left main was free of significant lesions and bifurcated into left anterior descending and left circumflex arteries. Left anterior descending artery and diagonals were free of significant lesions. Left circumflex artery had minor disease of up to about 20-30% stenosis in mid segment. Right coronary artery had a long segment of endovascular stent. In mid segment, there was an 80-90% in-stent restenosis. Remaining course of stents had up to about 40% diffuse in-stent restenosis. After reviewing the images we decided to proceed with intervention on RCA. Additional 4000 units of heparin was administered. I had a long discussion with the patient regarding dual antiplatelet therapy and the patient promised to stay compliant and take dual antiplatelet therapy in future. 600 mg of Plavix was given orally. A 6-[place]ian Mercury Intermediaari right guide was advanced to the ostium of the right coronary artery. A Runthrough wire was used to cross the lesion into distal RCA. A 3.0 x 38 drug-eluting Resolute Integrity stent was delivered inside the stent and was positioned across the tightest part of the lesion and deployed by inflating the balloon to 20 atmospheres. The next angiogram showed excellent results with no residual stenosis at the stented site. The remaining course of the previous stents had about 40% diffuse disease but did not appear to be hemodynamically significant for intervention. The patient tolerated the procedure well with no complications. IMPRESSION 1. Normal LV systolic function with ejection fraction of 65%. 2. Coronary artery disease as described above. 3. Successful primary stent of RCA using a 3.0 x 38 drug-eluting Resolute Integrity stent. PLAN Will keep him on dual antiplatelet therapy and continue risk modification. CHELSEY
--- NOTE | 2017-03-30 18:07 | NUR ---
SHIFT PT HAS BEEN PLEASANT AND COOPERATIVE ALL SHIFT. PT IS A&OX3, UP WITH NO ASSIST, LOW FALL. PT DENIES PAIN, N/V AND SOA AT THIS TIME. PT HAS BEEN UP TO BATHROOM TWICE THIS SHIFT. RIGHT RADIAL PULSE IS NOW STRONG AND DRESSING TO PLACE WITH NO SIGNS OF BLEEDING. IS AT BEDSIDE. POST OP VITALS WNL, SEE VITAL INTERVENTION. NO OTHER CHANGES SINCE ADMISSION.
[2017-03-30] MEDS ORDERED: ATORVASTATIN 40 MG TABLET PO SCH (22:00)
[2017-03-31] VITALS (8 sets, daily range): BP systolic 126–147; BP diastolic 73–92; PULSE 51–61; RESP 14–36; TEMP 98.3; O2SAT 95–98
--- NOTE | 2017-03-31 05:34 | NUR ---
Shift Summary Pt slept well during the night. Denies any pain or discomforts. VSS. Arm board remains to right wrist. Dressing c/d/i. Pulse strong. Up to restroom several times with minimal assist. Sinus Dominick HR down to 48. Asymptomatic.
[2017-03-31 05:39] LABS: BASOPHILS % (AUTO) 0.5 % (0-2); EOSINOPHILS # (AUTO) 0.2 T/MM3 (0-0.5); EOSINOPHILS % (AUTO) 3.7 % (0-4); HCT - HEMATOCRIT 45.6 % (41-53); HGB - HEMOGLOBIN 15.4 GM/DL (13.5-17.5); IMMATURE GRANULOCYTE # (AUTO) 0.01 T/MM3 (0.00-0.03); IMMATURE GRANULOCYTE % (AUTO) 0.2 % (0.0-0.5); LYMPHOCYTES # (AUTO) 1.8 T/MM3 (1-4.8); LYMPHOCYTES % (AUTO) 29.5 % (23-45); MEAN CORPUSCULAR HGB 30.3 UUG (26-34); MEAN CORPUSCULAR HGB CONC(MCHC 33.8 GM/DL (31-37); MEAN CORPUSCULAR VOLUME 89.8 UM3 (80-100); MEAN PLATELET VOLUME 11.1 UM3 (9.4-12.4); MONOCYTES # (AUTO) 0.6 T/MM3 (0-0.8); MONOCYTES % (AUTO) 9.4 % (0-9.0); NEUTROPHILS #(AUTO)-ABSOLUTE 3.4 T/MM3 (1.8-7.7); NEUTROPHILS % (AUTO) 56.7 % (33-66); RED BLOOD COUNT 5.08 M/MM3 (4.50-5.90); WBC - WHITE BLOOD COUNT 5.9 T/MM3 (4.5-11.0)
[2017-03-31 05:49] LABS: LDL CHOLESTEROL,CALCULATED 128.6 (66-159); RISK FACTOR 6.2 RATIO (0-5.0); VLDL CHOLESTEROL 33.4 MG/DL (0-28)
[2017-03-31 05:54] LABS: ANION GAP 9 MEQ/L (5-15); BUN/CREATININE RATIO 14 RATIO (6-26); CHLORIDE 109 MEQ/L (98-107); CO2 - CARBON DIOXIDE 26 MEQ/L (22-30); CREATININE 0.8 MG/DL (0.8-1.5); GLOMERULAR FILTRATION RATE 105; GLUCOSE 95 MG/DL (75-110); POTASSIUM 4.3 MEQ/L (3.6-5); SODIUM 144 MEQ/L (134-144)
--- NOTE | 2017-03-31 08:57 | NUR ---
Status Pt is doing well this morning. No complaints ( no cp, nausea, vomiting). Ambulates well to to BR without difficulty or assistance. Eager for discharge. Will continue to monitor.
[2017-03-31] MEDS ORDERED: LISINOPRIL 10 MG TABLET PO SCH (09:00)
[2017-03-31] MEDS ORDERED: CLOPIDOGREL 75 MG TABLET PO SCH (09:00)
[2017-03-31] MEDS ORDERED: ASPIRIN *EC* 81mg TABLET PO SCH (09:00)
--- NOTE | 2017-03-31 09:16 | NUR ---
CM CM IN TO VISIT PATIENT, HE IS A&O. IS AT THE BEDSIDE. PATIENT CONFIRMS DISCHARGE PLAN IS HOME WITHOUT NEEDS. THIS CM CONTACT INFORMATION GIVEN.
--- NOTE | 2017-03-31 09:17 | NUR ---
CARDIAC REHAB: CARDIAC REHAB HAS BEEN ORDERED, HE HAD COME FOR 2 SESSIONS IN THE PAST. PATIENT PROBABLY WILL NOT COME BACK, STATES "HE KNOWS WHAT HE NEEDS TO DO." WE WILL CONTACT IN A FEW DAYS TO SEE IF HE WOULD LIKE TO PROCEED WITH ORIENTATION.
[2017-03-31] MEDS ORDERED: LISI10TA7 PO (11:01)
[2017-03-31] MEDS ORDERED: CLOP75TA PO (11:01)
[2017-03-31] MEDS ORDERED: ASPI-1085 PO (11:01)
[2017-03-31] MEDS ORDERED: METO25TA6 PO (11:01)
[2017-03-31] MEDS ORDERED: ATOR40TA PO (11:01)
--- NOTE | 2017-03-31 11:23 | NUR ---
Discharge Pt discharged home in good condition. Discharge instructions were given to pt and pt's spouse. Instructions included, but not limited to; follow up appointment, s/s to report, s/s to expect, importance of medications and what they are for. Pt verbalized understanding with no further questions. Pt ambulated to ER with all personal belongings.
--- NOTE | 2017-04-05 14:48 | NUR ---
ATTEMPTED POST HOSPITAL FOLLOW UP PHONE CALL #1, LEFT VOICE MESSAGE TO RETURN CALL TO CM.
== END 2017-03-31 11:20 | disposition home or self-care (01) ==
LOC: CATH 10:48 → SRG 10:49 → CCU 13:15 → CATH 03-31 11:20
PROVIDERS: ATTEND Internal Medicine Cardiovascular Disease
DX: T82.855A Stenosis of coronary artery stent, initial encounter (principal); I25.119 Atherosclerotic heart disease of native coronary artery with unspecified angina pectoris; Z91.14 Patient's other noncompliance with medication regimen; R07.2 Precordial pain; R55 Syncope and collapse; I10 Essential (primary) hypertension; E78.2 Mixed hyperlipidemia; F17.210 Nicotine dependence, cigarettes, uncomplicated; Z79.82 Long term (current) use of aspirin; Z79.899 Other long term (current) drug therapy; Z82.49 Family history of ischemic heart disease and other diseases of the circulatory system
CPT/HCPCS: 36415; 80048; 80061; 85025; 93005; 93458; C1769; C1874; C1893; C9600; J1644; J2250; J3010; J3490; J7030; Q9967